=== PATIENT | female | born 1990 | race Two or more races ===

== ENCOUNTER 2018-03-04 00:10 | Inpatient (IN) | END 2018-03-08 12:40 | disposition home or self-care (01) | DRG 787 ==

== ENCOUNTER 2019-03-05 22:15 | Inpatient (IN) | payer OTHER ==
[~2019-03-05] VITALS: Ht 160 cm; Wt 95.2 kg
[~2019-03-05 22:15] MED LIST: ASPI-805 PO; FERR134T PO; IBUP-1542 PO; LABE300T2 PO; PREN-19 PO
[2019-03-05 22:29] VITALS: BP 171/92; PULSE 81; RESP 18; Ht 160 cm; Wt 95.2 kg
[2019-03-05] MEDS ORDERED: LABETALOL HCL 20MG INJ IV PRN ×2 (23:00)
[2019-03-05] MEDS ORDERED: hydrALAzine 20 MG INJ IV PRN (23:00)
[2019-03-05] MEDS: NACL 0.9% 3 ML SYG IV SCH (23:52)
[2019-03-06] MEDS: LABETALOL HCL 20MG INJ IV PRN (00:22)
[2019-03-06] MEDS: LABETALOL 100 MG TAB PO SCH ×3 (06:27→22:07)
[2019-03-06] MEDS ORDERED: FAMOTIDINE 20 MG INJ IV SCH (09:00)
[2019-03-06] MEDS ORDERED: BETAMET NA PHOS/AC (6 MG/ML) 2 ML INJ SYG IM ONE ×2 (10:17→10:30)
[2019-03-06] MEDS: PRENATAL VITAMIN PO SCH (10:39)
[2019-03-06] MEDS: FAMOTIDINE 20 MG TAB PO SCH (10:39)
[2019-03-06] MEDS: FERROUS SULFATE (EC) 325 MG TAB PO SCH (10:39)
[2019-03-07] MEDS: LABETALOL 100 MG TAB PO SCH ×3 (06:12→21:10)
[2019-03-07] MEDS: PRENATAL VITAMIN PO SCH (09:32)
[2019-03-07] MEDS: FAMOTIDINE 20 MG TAB PO SCH (09:32)
[2019-03-07] MEDS: FERROUS SULFATE (EC) 325 MG TAB PO SCH (09:32)
[2019-03-07] MEDS: NACL 0.9% 3 ML SYG IV SCH (21:12)
[2019-03-08] MEDS: LABETALOL 100 MG TAB PO SCH ×3 (05:13→21:17)
[2019-03-08] MEDS: FERROUS SULFATE (EC) 325 MG TAB PO SCH (08:47)
[2019-03-08] MEDS: PRENATAL VITAMIN PO SCH (08:47)
[2019-03-08] MEDS: FAMOTIDINE 20 MG TAB PO SCH (08:47)
[2019-03-09] MEDS: LABETALOL 100 MG TAB PO SCH ×3 (04:58→21:04)
[2019-03-09] MEDS ORDERED: MAGNESIUM SULFATE 4 GM/100 ML 100 ML IVPB ONE (05:30)
[2019-03-09] MEDS: LACTATED RINGER'S 1,000 ML IV SCH ×3 (05:52→22:09)
[2019-03-09] MEDS ORDERED: MAGNESIUM SULFATE 20 GM/500 ML 500 ML IV SCH (06:00)
[2019-03-09] MEDS ORDERED: MAGNESIUM SULFATE 40GM/1000ML 1,000 ML IV SCH ×2 (06:00→22:30)
[2019-03-09] MEDS: FAMOTIDINE 20 MG TAB PO SCH (09:01)
[2019-03-09] MEDS: PRENATAL VITAMIN PO SCH (09:01)
[2019-03-09] MEDS: FERROUS SULFATE (EC) 325 MG TAB PO SCH (09:01)
[2019-03-09] MEDS ORDERED: MAGNESIUM SULFATE 20 GM/500 ML 500 ML IV STA (21:15)
[2019-03-09] MEDS ORDERED: LACTATED RINGER'S 1,000 ML IV SCH (22:08)
[2019-03-09] MEDS ORDERED: NIFEdipine 10 MG CAP PO PRN (22:30)
[2019-03-09] MEDS ORDERED: LANOLIN HPA 1 PKT TOP PRN (22:30)
[2019-03-09] MEDS ORDERED: CEFAZOLIN 2 GM/50 ML (PMX) 50 ML IVPB SCH (22:30)
[2019-03-09] MEDS ORDERED: OXYTOCIN 30 UNITS/LR 500 ML IV SCH (22:30)
[2019-03-09] MEDS ORDERED: NA PHOSPHATE/BIPHOS 133 ML ENEMA PR PRN (22:30)
[2019-03-09] MEDS ORDERED: ONDANSETRON 4 MG INJ ONE (22:30)
[2019-03-09] MEDS ORDERED: OXYCODONE/ACETAMINOPHEN (5/325) TAB PO PRN ×2 (22:30)
[2019-03-09] MEDS ORDERED: METHYLERGONOVINE 0.2 MG INJ IM PRN (22:30)
[2019-03-09] MEDS ORDERED: MISOPROSTOL 200 MCG TAB PR PRN ×2 (22:30)
[2019-03-09] MEDS ORDERED: OXYTOCIN 10 UNIT INJ ONE ×2 (22:30→23:03)
[2019-03-09] MEDS ORDERED: CARBOPROST 250 MCG INJ IM PRN (22:30)
[2019-03-09] MEDS ORDERED: morphine SULFATE/PF (10 MG/10 ML) INJ ONE (22:30)
[2019-03-09] MEDS ORDERED: OXYTOCIN 30 UNITS/LR 500 ML IV PRN (22:30)
[2019-03-10] VITALS (20 sets, daily range): BP systolic 112–153; BP diastolic 62–89; PULSE 70–92; RESP 1–20
[2019-03-10] MEDS ORDERED: DIPHENHYDRAMINE 50 MG INJ IV PRN
[2019-03-10] MEDS ORDERED: IBUPROFEN 600 MG TAB PO SCH
[2019-03-10] MEDS ORDERED: ONDANSETRON 4 MG INJ IV PRN
[2019-03-10] MEDS ORDERED: morphine 2 MG INJ IV PRN
[2019-03-10] MEDS ORDERED: NALOXONE (0.4 MG/ML) INJ IV PRN
[2019-03-10] MEDS: LABETALOL HCL 20MG INJ IV PRN (00:14)
[2019-03-10] MEDS: LABETALOL 100 MG TAB PO SCH ×3 (05:00→21:03)
[2019-03-10] MEDS: LACTATED RINGER'S 1,000 ML IV SCH ×3 (06:09→14:09)
[2019-03-10] MEDS: PRENATAL VITAMIN PO SCH (09:00)
[2019-03-10] MEDS: FERROUS SULFATE (EC) 325 MG TAB PO SCH (09:10)
[2019-03-10] MEDS: SENNA/DOCUSATE NA (8.6MG/50MG) TAB PO SCH ×2 (09:10→21:03)
[2019-03-10] MEDS: FAMOTIDINE 20 MG TAB PO SCH (09:11)
[2019-03-10] MEDS ORDERED: MAGNESIUM SULFATE 20 GM/500 ML 500 ML IV SCH (10:17)
[2019-03-10] MEDS ORDERED: MAGNESIUM SULFATE 40GM/1000ML 1,000 ML IV SCH (10:30)
[2019-03-10] MEDS ORDERED: MAGNESIUM SULFATE 2 GM/50 ML 50 ML IVPB ONE (11:00)
[2019-03-10] MEDS: KETOROLAC 30 MG INJ IV PRN ×2 (19:24→20:10)
[2019-03-10] MEDS ORDERED: OXYCODONE/ACETAMINOPHEN (5/325) TAB PO PRN ×2 (22:35)
[2019-03-10] MEDS: IBUPROFEN 600 MG TAB PO SCH (23:47)
[2019-03-11] MEDS: NACL 0.9% 3 ML SYG IV SCH (00:24)
[2019-03-11 04:30] VITALS: BP 139/89; PULSE 79; RESP 18
[2019-03-11] MEDS: IBUPROFEN 600 MG TAB PO SCH ×3 (06:01→17:35)
[2019-03-11] MEDS: LABETALOL 100 MG TAB PO SCH ×2 (06:01→17:36)
[2019-03-11 08:00] VITALS: BP 133/86; PULSE 82; RESP 18
[2019-03-11] MEDS: FERROUS SULFATE (EC) 325 MG TAB PO SCH (11:43)
[2019-03-11] MEDS: FAMOTIDINE 20 MG TAB PO SCH (11:43)
[2019-03-11] MEDS: SENNA/DOCUSATE NA (8.6MG/50MG) TAB PO SCH ×2 (11:44→21:00)
[2019-03-11] MEDS: PRENATAL VITAMIN PO SCH (11:44)
[2019-03-11 12:02] VITALS: BP 112/78; PULSE 93; RESP 18
[2019-03-11 16:00] VITALS: BP 132/86; PULSE 95; RESP 20
[2019-03-11 16:24] VITALS: BP 132/86; PULSE 95; RESP 20
[2019-03-11 20:15] VITALS: BP 139/91; PULSE 89; RESP 18
[2019-03-12 00:20] VITALS: BP 124/73; PULSE 85; RESP 19
[2019-03-12 06:00] VITALS: BP 121/74; PULSE 89
[2019-03-12] MEDS: LABETALOL 100 MG TAB PO SCH ×2 (06:00→07:56)
[2019-03-12] MEDS: IBUPROFEN 600 MG TAB PO SCH ×2 (06:07)
[2019-03-12 09:00] VITALS: BP 140/76; PULSE 77; RESP 16
[2019-03-12] MEDS ORDERED: MEASLES,MUMPS,RUBELLA VACCINE INJ SC* ONE (09:00)
[2019-03-12] MEDS ORDERED: DIPHTH/TET/ACEL PERTUSS (ADULT) 0.5 ML VIAL IM* ONE (09:00)
[2019-03-12] MEDS: SENNA/DOCUSATE NA (8.6MG/50MG) TAB PO SCH (09:07)
[2019-03-12] MEDS: FERROUS SULFATE (EC) 325 MG TAB PO SCH (09:07)
[2019-03-12] MEDS: FAMOTIDINE 20 MG TAB PO SCH (09:07)
[2019-03-12] MEDS: PRENATAL VITAMIN PO SCH (09:07)
== END 2019-03-12 12:40 | disposition home or self-care (01) | DRG 783 ==
LOC: OBT 22:15 → L-D 22:16 → OBT 22:37 → L-D 22:37 → PP1 03-08 11:00 → L-D 03-09 22:00 → PP1 03-10 03:08
PROVIDERS: ADMIT Specialist; ATTEND Specialist
PROC: 10D00Z1 Extraction of Products of Conception, Low, Open Approach (ICD-10-PCS; principal; 2019-03-09)
PROC: 0UT70ZZ Resection of Bilateral Fallopian Tubes, Open Approach (ICD-10-PCS; 2019-03-09)
PROC: 10D00Z1 Extraction of Products of Conception, Low, Open Approach (ICD-10-PCS; 2019-03-09)
DX: O65.5 Obstructed labor due to abnormality of maternal pelvic organs (principal); O60.13X0 Preterm labor second trimester with preterm delivery third trimester, not applicable or unspecified; O34.211 Maternal care for low transverse scar from previous cesarean delivery; O14.14 Severe pre-eclampsia complicating childbirth; Z3A.31 31 weeks gestation of pregnancy; Z37.0 Single live birth; Z30.2 Encounter for sterilization
CPT/HCPCS: 76818; 80053; 81001; 83615; 83735; 84112; 84560; 85025; 85384; 85610; 85730; 86850; 86900; 86901; 88302; 99464; G0463; J0690; J0702; J1885; J2274; J2405; J2590; J3475; J7120